=== PATIENT | female | born 1960 | race Caucasian/White ===

== ENCOUNTER 2016-10-29 20:04 | Emergency (ER) | payer OTHER ==
[2016-10-29] MEDS ORDERED: ALBUTEROL SO4 0.083% IH SOL 2.5 MG/3 ML VIAL.NEB. NEB ONE (20:10)
[2016-10-29 20:11] VITALS: BP 161/99; PULSE 77; TEMP 98.2; BMI 26.6
[2016-10-29] MEDS ORDERED: DEXAMETHASONE SOD PHOSPHATE 10 MG/1 ML VIAL ONE (20:11)
--- NOTE | 2016-10-29 20:13 | PDOC ---
History of Present Illness - History of Present Illness Initial Comments: 10/29/16 20:48 The patient is a 55 year old female with a PMHx of thyroid disease who presents to the ED with lip and right sided facial swelling for about an hour. The patient reports associated diffuse hives and chest pain. Patient woke up with flu like symptoms and left work early. Soon after she got home, she began to have signs of an allergic reaction and came to the ED. She denies SOB. She denies fever, chills, nausea, vomiting, diarrhea. PAST MEDICAL HISTORY: thyroid disease PAST SURGICAL HISTORY: no significant history FAMILY HISTORY: no pertinent history SOCIAL HISTORY: Pt lives with family and is employed. MEDICATIONS: reviewed ALLERGIES: As per nursing notes Review of Systems: General: No fevers or chills, no weakness, no weight loss HEENT: No change in vision. No sore throat,. No ear pain CardioVascular: No chest pain or shortness of breath Respiratory: No cough, or wheezing. Gastrointestinal: no nausea, vomiting, diarrhea or constipation, No rectal bleeding Genitourinary: No dysuria, hematuria, or frequency Musculoskeletal: No joint or muscle pain or swelling Neurologic: No headache, vertigo, dizziness or loss of consciousness Psychiatric: No depression Skin: No rashes or easy bruising Endocrine: No increased thirst or abnormal weight change Allergic: No skin or latex allergy All other systems reviewed and normal Physical Exam: General: Well-nourished well-developed individual, no acute distress HEENT: Throat: Marked angioedema on lips and perioral tissue. No angioedema of posterior oropharynx. tonsils normal, no erythema or exudate Neck: Supple, no meningeal signs, no lymphadenopathy Eyes: Pupils equal reactive and round, extraocular motion intact Chest: Nontender to palpation Cardiac: S1-S2 normal, regular rate and rhythm, no murmurs rubs or gallops Respiratory: Lungs have mild expiratory wheezing, but good entry bilaterally. Abdomen: Soft, nondistended, normal bowel sounds, nontender to palpation diffusely Extremities: Warm, dry, no cyanosis, clubbing, or edema Skin: Hives on neck and trunk Neuro: Alert and oriented x3, nonfocal exam, grossly intact, normal gait Psych: Normal mood and affect <Elisabet Celestin - Last Filed: 10/29/16 21:06> - General History Source: Patient Exam Limitations: No Limitations - History of Present Illness Initial Comments: 10/29/16 22:22 A portion of this note was documented by scribe services under my direction. I have reviewed the details of the note, within reason, and agree with the documentation. The case summary and management plan written by me. Assessment and plan: This is a 55-year-old female who comes in complaining of lip and periorbital swelling. Patient was also noted to have some wheezing and hives. Patient given Decadron, Benadryl and a albuterol neb with improvement of her symptoms. Patient observed in the emergency room for 3.5 hours <Cisco Arvizu I - Last Filed: 10/29/16 23:34> - General Chief Complaint: Allergic Reaction Stated Complaint: FACIAL SWELLING Time Seen by Provider: 10/29/16 20:11 Past History <Elisabet Celestin - Last Filed: 10/29/16 21:06> - Past Medical History Thyroid Disease: Yes - Psycho/Social/Smoking Cessation Hx Anxiety: No Suicidal Ideation: No Smoking History: Never smoked Hx Alcohol Use: No Drug/Substance Use Hx: No Substance Use Type: Alcohol <Cisco Arvizu I - Last Filed: 10/29/16 23:34> - Past Medical History Allergies/Adverse Reactions: Allergies Allergy/AdvReac Type Severity Reaction Status Date / Time No Known Allergies Allergy Verified 10/29/16 20:06 Home Medications: Ambulatory Orders Gabapentin [Neurontin] 600 mg PO HS 10/29/16 Levothyroxine [Synthroid -] 75 mcg PO DAILY 10/29/16 Methylprednisolone [Medrol Dose Trent] 4 mg PO ASDIR #21 tablet 10/29/16 *Physical Exam - Vital Signs Last Vital Signs Temp Pulse Resp BP Pulse Ox 98.2 F 77 18 161/99 100 10/29/16 20:05 10/29/16 20:05 10/29/16 20:05 10/29/16 20:05 10/29/16 20:05 <Elisabet Celestin - Last Filed: 10/29/16 21:06> - Vital Signs Last Vital Signs Temp Pulse Resp BP Pulse Ox 98.2 F 77 18 161/99 100 10/29/16 20:05 10/29/16 20:05 10/29/16 20:05 10/29/16 20:05 10/29/16 20:05 <Cisco Arviuz I - Last Filed: 10/29/16 23:34> Heart Score/ECG Review #1 10/29/16 21:06 Normal sinus rhythm at 82 bpm. <Elisabet Celestin - Last Filed: 10/29/16 21:06> ED Treatment Course - Medications Given in the ED: ED Medications Discontinued Medications Generic Name Dose Route Start Last Admin Trade Name Nick PRN Reason Stop Dose Admin Dexamethasone Sodium Phosphate 10 mg 10/29/16 20:14 10/29/16 20:19 Decadron Injection - IVPUSH 10/29/16 20:15 10 mg ONCE ONE Administration Diphenhydramine HCl 50 mg 10/29/16 20:13 10/29/16 20:19 Benadryl Injection - IVPUSH 10/29/16 20:14 50 mg ONCE ONE Administration <Elisabet Celestin - Last Filed: 10/29/16 21:06> *DC/Admit/Observation/Transfer - Attestations Scribe Attestion: 10/29/16 20:48 Documentation prepared by Elisabet Celestin, acting as medical reimbursement manager for Cisco Arvizu MD. <Elisabet Celestin - Last Filed: 10/29/16 21:06> - Discharge Dispostion Admit: No <Cisco Arvizu I - Last Filed: 10/29/16 23:34> Diagnosis at time of Disposition: Allergic reaction Qualifiers: Encounter type: initial encounter Qualified Code(s): T78.40XA - Allergy, unspecified, initial encounter - Discharge Dispostion Disposition: HOME Condition at time of disposition: Improved - Prescriptions Prescriptions: Methylprednisolone [Medrol Dose Trent] 4 mg PO ASDIR #21 tablet - Patient Instructions Printed Discharge Instructions: DI for General Allergic Reactions Additional Instructions: Take the Medrol Dosepak and taper as per the pack. In addition to that you can also take Benadryl 2 tablets as often as every 4-6 hours if needed. Return to the emergency department immediately with ANY new, persistent or worsening symptoms. Continue any medications as previously prescribed by your physician. You should follow up with your primary doctor as soon as possible regarding today's emergency department visit. . Please make sure your doctor reviews the results of your emergency evaluation. Thank you for coming to the Emergency Department today for your care. It was a pleasure to see you today. Please note that your evaluation is INCOMPLETE until you follow-up with your doctor.
[2016-10-29] MEDS: DEXAMETHASONE SOD PHOSPHATE 10 MG/1 ML VIAL IVPUSH ONE (20:19)
[2016-10-29] MEDS: ALBUTEROL SO4 0.083% IH SOL 2.5 MG/3 ML VIAL.NEB. NEB ONE (20:56)
[2016-10-29 21:12] LABS: CPK(DFH) 69 IU/L (26-140)
[2016-10-29 21:40] LABS: TROPONIN I (DFP) < 0.03 ng/ml (0.03-0.50)
--- NOTE | 2016-10-30 10:48 | EKG ---
Test Reason : Blood Pressure : / mmHG Vent. Rate : 082 BPM Atrial Rate : 082 BPM P-R Int : 142 ms QRS Dur : 078 ms QT Int : 394 ms P-R-T Axes : 059 012 024 degrees QTc Int : 460 ms NORMAL SINUS RHYTHM NORMAL ECG WHEN COMPARED WITH ECG OF 14-AUG-2002 11:06, QT HAS LENGTHENED Confirmed by JENNIFER GAUTHIER MD ([id number]) on 10/30/2016 10:48:08 AM Referred By: MD HOWELL Confirmed By:JENNIFER GAUTHIER MD
== END 2016-10-29 23:40 | disposition home or self-care (01) ==
LOC: FER 20:04
PROC: 3E0F7GC Introduction of Other Therapeutic Substance into Respiratory Tract, Via Natural or Artificial Opening (ICD-10-PCS; principal; 2016-10-29)
PROC: 3E0333Z Introduction of Anti-inflammatory into Peripheral Vein, Percutaneous Approach (ICD-10-PCS; 2016-10-29)
PROC: 3E033GC Introduction of Other Therapeutic Substance into Peripheral Vein, Percutaneous Approach (ICD-10-PCS; 2016-10-29)
DX: T78.3XXA Angioneurotic edema, initial encounter (principal); T78.40XA Allergy, unspecified, initial encounter; X58.XXXA Exposure to other specified factors, initial encounter
CPT/HCPCS: 36415; 82550; 84484; 93005; 93010; 99281-25